=== PATIENT | male | born 1970 | race Caucasian/White ===

== ENCOUNTER 2018-11-11 15:58 | Emergency (ER) | payer MEDICAID ==
[2018-11-11 16:15] VITALS: TEMP 98.9; O2SAT 97
[2018-11-11] MEDS ORDERED: Sodium Chloride 0.9% 1,000 ML IV ONE (16:40)
[2018-11-11 17:24] LABS: BASO # 0.1 K/uL (0.0-0.2); BASO % 0.6 % (0.0-2.0); EOS % 0.1 % (0.0-4.0); HEMOGLOBIN 13.7 g/dL (12.0-18.0); LYMPH # 3.1 K/uL (1.0-4.3); LYMPH % 13.1 % (20.0-40.0); MEAN CORPUSCULAR HEMOGLOBIN 29.1 pg (27.0-31.0); MEAN CORPUSCULAR HGB CONC 33.1 g/dL (33.0-37.0); MONO # 1.8 K/uL (0.0-0.8); MONO % 7.5 % (0.0-10.0); NEUT # 18.8 K/uL (1.8-7.0); NEUT % 78.7 % (50.0-75.0); RBC 4.7 Mil/uL (4.40-5.90); RED CELL DISTRIBUTION WIDTH 14.2 % (11.5-14.5); WHITE BLOOD COUNT 23.8 K/uL (4.8-10.8)
[2018-11-11] MEDS ORDERED: Sodium Chloride 0.9% 1,000 ML ONE (17:25)
[2018-11-11 17:28] LABS: URINE BILIRUBIN NEGATIVE (NEGATIVE); URINE BLOOD 1+ (NEGATIVE); URINE CLARITY Clear (Clear); URINE COLOR Yellow (YELLOW); URINE GLUCOSE (UA) NORMAL (Normal); URINE LEUKOCYTE ESTERASE TRACE Leu/uL (Negative); URINE PROTEIN NEGATIVE (NEGATIVE)
--- NOTE | 2018-11-11 17:31 | RAD ---
Date of service: 11/11/2018 PROCEDURE: Radiographs of the chest and abdomen (obstructive series) HISTORY: abd pain COMPARISON: No prior. TECHNIQUE: AP radiograph of the chest, with upright and supine radiographs of the abdomen. FINDINGS: CHEST: Lungs: Small opacities at the lung bases likely atelectasis. Cardiovascular: Normal size heart. No pulmonary vascular congestion. No aortic atherosclerotic calcification present Pleura: No pleural fluid. No pneumothorax. Other findings: None. ABDOMEN AND PELVIS: Bowel: Mildly dilated small bowel loops demonstrate mild wall thickening noted in the left mid and upper abdomen Free air: None. Bones: Unremarkable. Other findings: None. IMPRESSION: Small opacities at the lung bases likely atelectasis. Mildly dilated small bowel loops demonstrate mild wall thickening. No evidence of high-grade bowel obstruction.
[2018-11-11 17:37] LABS: ALB/GLOB RATIO 1.2 (1.0-2.1); ALBUMIN 4.3 g/dL (3.5-5.0); ALT/SGPT 24 U/L (21-72); AST/SGOT 21 U/L (17-59); BLOOD UREA NITROGEN 10 mg/dL (9-20); CALCIUM 9.4 mg/dl (8.6-10.4); GFR NON-AFRICAN AMERICAN > 60
[2018-11-11 17:44] LABS: LIPASE < 10 U/L (23-300)
[2018-11-11] MEDS ORDERED: Iodixanol 320 MG/ML 100 ML BOTTLE IV ONE (17:55)
[2018-11-11 18:49] VITALS: BP 114/64; PULSE 93; RESP 16
--- NOTE | 2018-11-11 19:28 | C.PDOC ---
History Of Present Illness 48 y/o male comes in complaining of lower abdominal discomfort, urinary hesitancy, and pain with urination. Patient denies unprotected sex. Patient is at bedside with and mother. Reports he has trouble defecating for the last 2 days. Denies urethral discharge. Time Seen by Provider: 11/11/18 16:25 Chief Complaint (Nursing): Male Genitourinary History Per: Patient History/Exam Limitations: no limitations Onset/Duration Of Symptoms: Days Current Symptoms Are (Timing): Still Present Past Medical History Reviewed: Historical Data, Nursing Documentation, Vital Signs Vital Signs: Last Vital Signs Temp 98.9 F 11/11/18 16:12 Pulse 108 H 11/11/18 16:12 Resp 22 11/11/18 16:12 BP 114/66 11/11/18 16:12 Pulse Ox 97 11/11/18 16:12 Family History: States: No Known Family Hx - Social History Hx Alcohol Use: Yes Hx Substance Use: No - Immunization History Hx Tetanus Toxoid Vaccination: No Hx Influenza Vaccination: No Hx Pneumococcal Vaccination: No Review Of Systems Except As Marked, All Systems Reviewed And Found Negative. Constitutional: Negative for: Fever, Chills Gastrointestinal: Positive for: Abdominal Pain (lower abdominal discomfort) Genitourinary: Positive for: Dysuria, Other (Urinary hesitancy) Musculoskeletal: Negative for: Back Pain Physical Exam - Physical Exam Appears: Non-toxic, In Acute Distress (mild), Other (Morbidly obese) Skin: Warm, Dry Head: Atraumatic, Normacephalic Eye(s): bilateral: PERRL, EOMI Oral Mucosa: Moist Neck: Supple Cardiovascular: Rhythm Regular, No Murmur Respiratory: Normal Breath Sounds, No Rales, No Rhonchi, No Wheezing Gastrointestinal/Abdominal: Soft, Tenderness (mild suprapubic tenderness), No Guarding, No Rebound, Other (negative new's, negative mcburney's) Extremity: Bilateral: Atraumatic, Normal Color And Temperature, Normal ROM Neurological/Psych: Oriented x3, Normal Speech ED Course And Treatment - Laboratory Results Result Diagrams: 11/11/18 17:21 11/11/18 17:21 Lab Results: Total Bilirubin 0.9 mg/dL (0.2-1.3) 11/11/18 17:21 AST 21 U/L (17-59) 11/11/18 17:21 ALT 24 U/L (21-72) 11/11/18 17:21 Alkaline Phosphatase 99 U/L (38-126) 11/11/18 17:21 Total Protein 7.8 g/dL (6.3-8.3) 11/11/18 17:21 Albumin 4.3 g/dL (3.5-5.0) 11/11/18 17: Globulin 3.5 gm/dL (2.2-3.9) 11/11/18 17:21 Albumin/Globulin Ratio 1.2 (1.0-2.1) 11/11/18 17:21 Lipase < 10 U/L (23-300) L 11/11/18 17:21 Urine Color Yellow (YELLOW) 11/11/18 17:21 Urine Clarity Clear (Clear) 11/11/18 17:21 Urine pH 6.0 (5.0-8.0) 11/11/18 17:21 Ur Specific [place] 1.018 (1.003-1.030) 11/11/18 17:21 Urine Protein Negative mg/dL (NEGATIVE) 11/11/18 17:21 Urine Glucose (UA) Normal mg/dL (Normal) 11/11/18 17:21 Urine Ketones Negative mg/dL (NEGATIVE) 11/11/18 17:21 Urine Blood 1+ (NEGATIVE) H 11/11/18 17:21 Urine Nitrate Negative (NEGATIVE) 11/11/18 17:21 Urine Bilirubin Negative (NEGATIVE) 11/11/18 17: Urine Urobilinogen 2.0 mg/dL (0.2-1.0) 11/11/18 17:21 Ur Leukocyte Esterase Trace Jerson/uL (Negative) 11/11/18 17:21 Urine WBC (Auto) 6 /hpf (0-5) H 11/11/18 17:21 Urine RBC (Auto) 1 /hpf (0-3) 11/11/18 17:21 Lab Interpretation: Abnormal (ua 6 WBC's) ECG: Interpreted By Me ECG Rhythm: Sinus Rhythm ECG Interpretation: Normal Rate From EC O2 Sat by Pulse Oximetry: 97 (RA) Pulse Ox Interpretation: Normal - Radiology CXR: Interpreted by Me CXR Interpretation: Yes: No Acute Disease - Other Rad abd x 2 X-Ray: Interpreted by Me (+FOS) Obstructive Series X-Ray: Read By Radiologist Interpretation: IMPRESSION: Small opacities at the lung bases likely atelectasis. Mildly dilated small bowel loops demonstrate mild wall thickening. No evidence of high-grade bowel obstruction. - CT Scan/US Abd/Pel CT Other Rad Studies (CT/US): Read By Radiologist, Radiology Report Reviewed CT/US Interpretation: IMPRESSION: No acute intra-abdominal or pelvic abnormality. Fatty infiltration of liver. Mild enlargement of the prostate gland. Mild thickening of bladder wall. Mild diverticular changes sigmoid and descending colon. Clinical correlation advised. Reevaluation Time: 19:34 Reassessment Condition: Improved Medical Decision Making Medical Decision Making: Plan: --Abd/Pel CT --EKG --Labs --Obstructive Series --IV fluids --Cipro --Toradol --UA prostatitis by exam, symptoms, difficulty/pain defecating and urinating no urethral d/c. urinary hesitancy, no retention (bedside bladder scan 79 cc's) empiric Cipro BID x 2 weeks NSAIDS f/u w Urology- Kirti Filling Layer Up Disposition Doctor Will See Patient In The: Office Counseled Patient/Family Regarding: Studies Performed, Diagnosis - Disposition Referrals: [facility] [Outside] [facility] [Outside] [facility] [Outside] [place] [facility] [Outside] Darell Crystal MD [Staff Provider] - Disposition: HOME/ ROUTINE Disposition Time: 19:36 Condition: GOOD Additional Instructions: Cipro 500 mg dos veces al lyn por 14 vasquez Puede rellenar los antibioticos con el [facility] para hacer johnson con Dr. Crystal- [facility] Ibuprofeno/Advil 600 mg cada 6 horas sagar necessario para dolor ebonie bastante agua. Prescriptions: Ciprofloxacin [Cipro] 1 tab PO BID #28 tab Instructions: Prostatitis (DC) Forms: [place] ([place]) Print Language: TURKISH - Clinical Impression Clinical Impression: Prostatitis - Scribe Statement The provider has reviewed the documentation as recorded by the Scribe Jennifer Jarquin Provider Attestation: All medical record entries made by the Scribe were at my direction and personally dictated by me. I have reviewed the chart and agree that the record accurately reflects my personal performance of the history, physical exam, medical decision making, and the department course for this patient. I have also personally directed, reviewed, and agree with the discharge instructions and disposition.
--- NOTE | 2018-11-12 08:54 | CT ---
Date of service: 11/11/2018 PROCEDURE: CT Abdomen and Pelvis with contrast HISTORY: pelvic pain, ? prostate//AP COMPARISON: None available. TECHNIQUE: CT scan of the abdomen and pelvis was performed after administration of intravenous contrast. Oral contrast was not administered. Coronal and sagittal reformatted images were obtained. Contrast dose: Radiation dose: Total exam DLP = 0.0 mGy-cm. This CT exam was performed using one or more of the following dose reduction techniques: Automated exposure control, adjustment of the mA and/or kV according to patient size, and/or use of iterative reconstruction technique. FINDINGS: LOWER THORAX: The visualized lungs are clear. LIVER: Mild hepatomegaly and fatty liver. No gross lesion or ductal dilatation. GALLBLADDER AND BILE DUCTS: Well distended. No calcified gallstones, wall thickening or pericholecystic fluid. PANCREAS: Normal in size with homogeneous enhancement. No gross lesion or ductal dilatation. SPLEEN: Normal in size and appearance. ADRENALS: The right adrenal gland is normal in size. There is a 1.4 x 1.4 cm indeterminate nodule in the left adrenal gland. KIDNEYS AND URETERS: Normal in size with homogeneous enhancement. No hydronephrosis. No solid mass. VASCULATURE: No aortic aneurysm. There are no aortic atherosclerotic calcifications or mural plaque present. BOWEL: Evaluation of the bowel is limited in the absence of oral contrast. The small bowel loops are normal in caliber. The colon is grossly normal in appearance. No bowel wall thickening or obstruction. APPENDIX: Normal appendix. PERITONEUM: No free fluid. No free air. LYMPH NODES: No enlarged lymph nodes. BLADDER: There is apparent mild circumferential mural thickening of the urinary bladder wall. REPRODUCTIVE: The prostate gland is normal in size. BONES: No acute fracture. Within normal limits for the patient's age. There is a small ossific density lateral to the right greater trochanter which could represent adductor tendon calcification. OTHER FINDINGS: None. IMPRESSION: 1. No acute abdominal or pelvic abnormality. 2. Apparent mild circumferential mural thickening of the urinary bladder wall is nonspecific and could be related to underdistention however cystitis cannot be entirely excluded. Please correlate with urine analysis. 3. Mild hepatomegaly and fatty liver. 4. 1.4 cm indeterminate left adrenal gland nodule. A dedicated CT scan of the abdomen without and with intravenous contrast with adrenal gland protocol is recommended for definitive characterization.
--- NOTE | 2018-11-13 21:12 | CARD ---
APPROVED REPORT Date of service: 11/11/2018 EKG Measurement Heart [id number] <Conclusion> Normal sinus rhythm Normal ECG
== END 2018-11-11 20:07 | disposition home or self-care (01) ==
LOC: C.ER 15:58
DX: N41.9 Inflammatory disease of prostate, unspecified (principal)
CPT/HCPCS: 74022; 74177; 80053; 81001; 83690; 85025; 87491; 87591; 93005; 96361; 96374; 99284; J1885; J7030; Q9967